=== PATIENT | female | born 1965 | race Hispanic/Latino ===

== ENCOUNTER 2024-11-11 14:35 | Emergency (ER) | payer MEDICARE, OTHER | END 2024-11-11 17:32 | disposition home or self-care (01) | LOC: CSHERS 14:35 | DX: J32.0 Chronic maxillary sinusitis (principal); J20.9 Acute bronchitis, unspecified; E11.9 Type 2 diabetes mellitus without complications; I10 Essential (primary) hypertension; F17.290 Nicotine dependence, other tobacco product, uncomplicated | CPT/HCPCS: 71046; 87428; 94640 ==